=== PATIENT | female | born 1940 | race Caucasian/White ===

== ENCOUNTER 2023-02-11 21:13 | Inpatient (IN) | payer MEDICARE, OTHER ==
[~2023-02-11] VITALS: Ht 154.9 cm; Wt 61.9 kg
[2023-02-11] MEDS ORDERED: APIX2.5T PO (22:58)
[2023-02-11] MEDS ORDERED: SACU1TAB PO (22:58)
[2023-02-11] MEDS ORDERED: FURO-152 PO (22:59)
[2023-02-11] MEDS ORDERED: ONDA-104 PO (22:59)
[2023-02-11] MEDS ORDERED: CARV3 PO (23:03)
[2023-02-11] MEDS ORDERED: ACET-784 PO (23:03)
[2023-02-11 23:13] LABS: BASOPHILS % (AUTO) 0.4 % (0.0-2.0); EOSINOPHILS % (AUTO) 0.7 % (1.0-6.0); HEMATOCRIT 38.6 % (36-46); HEMOGLOBIN 11.6 g/dL (12.0-16.0); LYMPHOCYTES % (AUTO) 17.2 % (22.0-44.0); MEAN CORPUSCULAR HEMOGLOBIN 27.2 pg (26.0-34.0); MEAN CORPUSCULAR VOLUME 91 fL (80-100); MONOCYTES # (AUTO) 0.5 K/uL (0.1-1.0); MONOCYTES % (AUTO) 8.6 % (2.0-9.0); NEUTROPHILS # (AUTO) 4.1 K/uL (1.8-7.7); NEUTROPHILS % (AUTO) 73.1 % (40.0-70.0); PLATELET COUNT (AUTO) 177 K/uL (150-450); RED BLOOD CELL COUNT(AUTO) 4.26 MIL/uL (4.00-5.20); RED CELL DISTRIBUTION WIDTH 21.8 % (11.5-14.5)
[2023-02-11] MEDS ORDERED: BISA10SU61 PR (23:14)
[2023-02-11] MEDS ORDERED: DONE-51 PO (23:14)
[2023-02-11] MEDS ORDERED: PANT-31 PO (23:14)
[2023-02-11] MEDS ORDERED: ROSU10TA72 PO (23:14)
[2023-02-11] MEDS ORDERED: MULT-1192 PO (23:14)
[2023-02-11] MEDS ORDERED: NA P133E4 PR (23:14)
[2023-02-11] MEDS ORDERED: ALLO-97 PO (23:14)
[2023-02-11] MEDS ORDERED: [UNRECOGNIZED DRUG - CODE] PO (23:14)
[2023-02-11] MEDS ORDERED: MAGN-169 PO (23:14)
[2023-02-11] MEDS ORDERED: OXYC-26 PO (23:14)
[2023-02-11 23:20] LABS: CALCIUM, TOTAL 8.6 mg/dL (8.8-10.5); CREATININE 1.32 mg/dL (0.60-1.30); POTASSIUM 4.2 mmol/L (3.5-5.1)
[2023-02-11 23:23] LABS: INR 1.4 (0.9-1.1); PROTHROMBIN TIME 14.5 SEC (9.4-11.6)
[2023-02-11 23:26] LABS: ALBUMIN 3.3 g/dL (3.4-5.0); BILIRUBIN,TOTAL 2.1 mg/dL (0.1-1.0); TOTAL PROTEIN, SERUM 7.2 g/dL (6.4-8.2)
[2023-02-12] MEDS ORDERED: ACETAMINOPHEN 325 MG TABLET PO PRN (01:30)
[2023-02-12] MEDS ORDERED: 0.9% SODIUM CHLORIDE 10 ML SYRINGE IVP PRN (01:30)
[2023-02-12] MEDS ORDERED: ONDANSETRON HCL 4 MG/2 ML VIAL IVP PRN ×2 (01:30→07:30)
[2023-02-12] MEDS ORDERED: HEPARIN SODIUM,PORCINE 5,000 UNITS/ML VIAL SQ SCH (08:00)
[2023-02-12] MEDS: FUROSEMIDE 20 MG/2 ML VIAL IVP SCH ×2 (08:29→21:08)
[2023-02-12] MEDS: FAMOTIDINE 20 MG TABLET PO SCH (08:29)
[2023-02-12] MEDS: DOCUSATE SODIUM 100 MG CAPSULE PO SCH ×2 (08:29→21:00)
[2023-02-12] MEDS ORDERED: FUROSEMIDE 20 MG/2 ML VIAL IVP ONE (10:15)
[2023-02-12] MEDS ORDERED: HEPARIN SODIUM,PORCINE 5,000 UNITS/ML VIAL IVP PRN ×2 (10:15)
[2023-02-12 12:06] VITALS: BP 96/62
[2023-02-12 12:31] LABS: BASOPHILS % (AUTO) 0.5 % (0.0-2.0); EOSINOPHILS % (AUTO) 0.4 % (1.0-6.0); HEMATOCRIT 38.6 % (36-46); HEMOGLOBIN 11.9 g/dL (12.0-16.0); LYMPHOCYTES # (AUTO) 1.1 K/uL (1.0-4.8); LYMPHOCYTES % (AUTO) 17.2 % (22.0-44.0); MEAN CORPUSCULAR HGB CONC 30.9 G/dL (31.0-37.0); MEAN CORPUSCULAR VOLUME 91 fL (80-100); MONOCYTES # (AUTO) 0.4 K/uL (0.1-1.0); MONOCYTES % (AUTO) 6.9 % (2.0-9.0); NEUTROPHILS # (AUTO) 4.7 K/uL (1.8-7.7); PLATELET COUNT (AUTO) 170 K/uL (150-450); RED BLOOD CELL COUNT(AUTO) 4.26 MIL/uL (4.00-5.20); RED CELL DISTRIBUTION WIDTH 21.4 % (11.5-14.5)
[2023-02-12] MEDS: HEPARIN SODIUM 25000 UNITS/D5W 250 ML IV PRN (12:43)
[2023-02-12 12:46] LABS: INR 1.4 (0.9-1.1); PROTHROMBIN TIME 14.6 SEC (9.4-11.6)
[2023-02-12 13:21] LABS: ABG BASE EXCESS -0.1 mmol/L (-2.0-3.0); ABG CARBOXYHEMOGLOBIN 0.9 % (0.0-1.5); ABG HCO3 24.1 mmol/L (22.0-26.0); ABG METHEMOGLOBIN 0.2 % (0.0-1.5); ABG OXYGEN CONTENT 15.5 mL/dL (15.0-23.0); ABG OXYGEN SATURATION 88.2 % (95.0-98.0); ABG OXYHEMOGLOBIN 87.2 % (94.0-100.0); ABG PCO2 42 mmHg (35-45); ABG PH 7.389 (7.35-7.450); ABG TOTAL HEMOGLOBIN 12.6 G/dL (12.0-18.0); PO2, ARTERIAL BG 54.3 mmHg (71.0-79.0); SOURCE, BLOOD GAS ARTERIAL
[2023-02-12 13:23] LABS: ABG A-A DIFF O2 183.4 mmHg (10-20.0); SITE, BLOOD GAS LFT BRACHIAL
[2023-02-12 13:24] LABS: O2 DEVICE,BLOOD GAS CANNULA (ROOM AIR)
[2023-02-12 16:45] VITALS: BP 97/60
[2023-02-12] MEDS: ACETAMINOPHEN 325 MG TABLET PO PRN (17:23)
[2023-02-12 17:54] LABS: APPEARANCE,URINE HAZY (CLEAR); BILIRUBIN,URINE NEGATIVE (NEGATIVE); GLUCOSE, URINE (UA) NEGATIVE (NEGATIVE); KETONES,URINE NEGATIVE (NEGATIVE); LEUKOCYTE ESTERASE ,URINE LARGE (NEGATIVE); NITRATE,URINE NEGATIVE (NEGATIVE); OCCULT BLOOD,URINE NEGATIVE (NEGATIVE); PROTEIN,URINE 30-70 mg/dL (NEGATIVE); SPECIFIC GRAVITIY, URINE 1.012 (1.003-1.030); UROBILINOGEN,URINE <=1.0 mg/dL (<=1.0)
[2023-02-12 18:04] LABS: BACTERIA,URINE Few /HPF (None Seen); RBC,URINE None Seen /HPF (0-2); SQUAMOUS EPITHELIAL CELL,UR Few /LPF (None Seen)
[2023-02-12 20:30] VITALS: BP 108/64
[2023-02-12 23:48] VITALS: BP 97/64
[2023-02-13 07:15] LABS: BASOPHILS % (AUTO) 0.5 % (0.0-2.0); HEMATOCRIT 39.5 % (36-46); LYMPHOCYTES # (AUTO) 1.7 K/uL (1.0-4.8); LYMPHOCYTES % (AUTO) 23.3 % (22.0-44.0); MEAN CORPUSCULAR HEMOGLOBIN 27.5 pg (26.0-34.0); MEAN CORPUSCULAR HGB CONC 30.5 G/dL (31.0-37.0); MEAN CORPUSCULAR VOLUME 90 fL (80-100); MONOCYTES # (AUTO) 0.7 K/uL (0.1-1.0); MONOCYTES % (AUTO) 10.1 % (2.0-9.0); NEUTROPHILS # (AUTO) 4.6 K/uL (1.8-7.7); NEUTROPHILS % (AUTO) 65.1 % (40.0-70.0); PLATELET COUNT (AUTO) 152 K/uL (150-450); RED BLOOD CELL COUNT(AUTO) 4.37 MIL/uL (4.00-5.20); RED CELL DISTRIBUTION WIDTH 21.5 % (11.5-14.5)
[2023-02-13 07:19] VITALS: BP 95/54
[2023-02-13 07:44] LABS: CALCIUM, TOTAL 8.8 mg/dL (8.8-10.5); CREATININE 1.24 mg/dL (0.60-1.30); POTASSIUM 4.1 mmol/L (3.5-5.1)
[2023-02-13] MEDS: FUROSEMIDE 20 MG/2 ML VIAL IVP SCH (09:00)
[2023-02-13] MEDS: ACETAMINOPHEN 325 MG TABLET PO PRN (09:56)
[2023-02-13] MEDS: DOCUSATE SODIUM 100 MG CAPSULE PO SCH ×2 (09:57→20:02)
[2023-02-13] MEDS: FAMOTIDINE 20 MG TABLET PO SCH (09:57)
[2023-02-13 11:00] VITALS: BP 102/67
[2023-02-13] MEDS: HEPARIN SODIUM 25000 UNITS/D5W 250 ML IV PRN (12:58)
[2023-02-13 15:21] VITALS: BP 102/70
[2023-02-13 19:26] VITALS: BP 116/70
[2023-02-13] MEDS: FUROSEMIDE 20 MG TABLET PO SCH (20:02)
[2023-02-13] MEDS: CARVEDILOL 3.125 MG TABLET PO SCH (20:02)
[2023-02-13] MEDS: SACUBITRIL/VALSARTAN 24-26 MG TABLET PO SCH (20:02)
[2023-02-13 23:15] VITALS: BP 103/60
[2023-02-14] MEDS: ACETAMINOPHEN 325 MG TABLET PO PRN ×2 (02:52→11:23)
[2023-02-14 03:16] VITALS: BP 102/56
[2023-02-14 07:30] VITALS: BP 100/64
[2023-02-14] MEDS: DOCUSATE SODIUM 100 MG CAPSULE PO SCH ×2 (08:54→20:24)
[2023-02-14] MEDS: ROSUVASTATIN CALCIUM 10 MG TABLET PO SCH (08:54)
[2023-02-14] MEDS: CARVEDILOL 3.125 MG TABLET PO SCH ×2 (08:54→20:24)
[2023-02-14] MEDS: FAMOTIDINE 20 MG TABLET PO SCH (08:54)
[2023-02-14] MEDS: FUROSEMIDE 20 MG TABLET PO SCH ×2 (08:54→20:24)
[2023-02-14] MEDS: SACUBITRIL/VALSARTAN 24-26 MG TABLET PO SCH ×2 (08:54→20:24)
[2023-02-14] MEDS ORDERED: SODIUM CHLORIDE 0.9% 500 ML IV ONE (11:21)
[2023-02-14] MEDS: CefTRIAXone 1 GM/DEXTROSE 50 ML IV SCH (11:24)
[2023-02-14 11:37] VITALS: BP 98/54
[2023-02-14 15:37] VITALS: BP 107/73
[2023-02-14 20:05] VITALS: BP 105/70
[2023-02-14] MEDS: APIXABAN 5 MG TABLET PO SCH (20:24)
[2023-02-15 01:05] VITALS: BP 109/65
[2023-02-15 05:17] VITALS: BP 110/67
[2023-02-15 07:27] VITALS: BP 110/66
[2023-02-15] MEDS: SACUBITRIL/VALSARTAN 24-26 MG TABLET PO SCH ×2 (08:18→21:14)
[2023-02-15] MEDS: DOCUSATE SODIUM 100 MG CAPSULE PO SCH ×2 (08:18→21:11)
[2023-02-15] MEDS: FAMOTIDINE 20 MG TABLET PO SCH (08:18)
[2023-02-15] MEDS: CefTRIAXone 1 GM/DEXTROSE 50 ML IV SCH (08:18)
[2023-02-15] MEDS: APIXABAN 5 MG TABLET PO SCH ×2 (08:19→21:11)
[2023-02-15] MEDS: FUROSEMIDE 20 MG TABLET PO SCH ×2 (08:19→21:14)
[2023-02-15] MEDS: ROSUVASTATIN CALCIUM 10 MG TABLET PO SCH (08:19)
[2023-02-15] MEDS: CARVEDILOL 3.125 MG TABLET PO SCH ×2 (08:19→21:11)
[2023-02-15] MEDS: ACETAMINOPHEN 325 MG TABLET PO PRN ×3 (08:41→21:11)
[2023-02-15] MEDS ORDERED: ENOXAPARIN SODIUM 40 MG/0.4 ML PF SYRINGE SQ SCH (09:00)
[2023-02-15 11:16] VITALS: BP 103/63
[2023-02-15] MEDS: LIDOCAINE 5% TRANSDERMAL PATCH TD SCH (15:11)
[2023-02-15 15:37] VITALS: BP 98/60
[2023-02-15 20:50] VITALS: BP 108/68
[2023-02-15] MEDS: ETHYL ALCOHOL 62% ANTISEPTIC NASAL SANITIZER 0.6 ML AMPUL NASAL SCH (21:10)
[2023-02-15] MEDS: -LIDODERM PATCH NOTE- MISC SCH (21:14)
[2023-02-15] MEDS ORDERED: MORPHINE SULFATE 2 MG/ML SYRINGE IVP ONE (23:15)
[2023-02-16 01:38] VITALS: BP 104/60
[2023-02-16 07:15] VITALS: BP 120/59
[2023-02-16 07:35] VITALS: BP 125/76
[2023-02-16 07:56] LABS: B-TYPE NATRIURETIC PEPTIDE 1420 pg/mL (0-100)
[2023-02-16] MEDS: ROSUVASTATIN CALCIUM 10 MG TABLET PO SCH (08:24)
[2023-02-16] MEDS: SACUBITRIL/VALSARTAN 24-26 MG TABLET PO SCH ×2 (08:24→20:40)
[2023-02-16] MEDS: CARVEDILOL 3.125 MG TABLET PO SCH (08:24)
[2023-02-16] MEDS: LIDOCAINE 5% TRANSDERMAL PATCH TD SCH (08:24)
[2023-02-16] MEDS: APIXABAN 5 MG TABLET PO SCH ×2 (08:24→20:40)
[2023-02-16] MEDS: ETHYL ALCOHOL 62% ANTISEPTIC NASAL SANITIZER 0.6 ML AMPUL NASAL SCH ×2 (08:24→20:41)
[2023-02-16] MEDS: FAMOTIDINE 20 MG TABLET PO SCH (08:24)
[2023-02-16] MEDS: DOCUSATE SODIUM 100 MG CAPSULE PO SCH ×2 (08:24→20:40)
[2023-02-16] MEDS: FUROSEMIDE 20 MG TABLET PO SCH ×2 (08:24→20:40)
[2023-02-16 08:27] LABS: ANION GAP 5 mmol/L (8-16); CALCIUM, TOTAL 8.6 mg/dL (8.8-10.5); CARBON DIOXIDE 32 mmol/L (22-29); CHLORIDE 101 mmol/L (98-107); GLOMERULAR FILTR. RATE CALC > 60 mL/min (>60); GLUCOSE,RANDOM 118 mg/dL (70-110); POTASSIUM 4.3 mmol/L (3.5-5.1); SODIUM SERUM 138 mmol/L (136-145); UREA NITROGEN, BLOOD 35 mg/dL (7-18)
[2023-02-16] MEDS: CefTRIAXone 1 GM/DEXTROSE 50 ML IV SCH (10:58)
[2023-02-16 11:27] VITALS: BP 99/64
[2023-02-16 16:00] VITALS: BP 104/65
[2023-02-16 20:03] VITALS: BP 121/74
[2023-02-16] MEDS: -LIDODERM PATCH NOTE- MISC SCH (20:40)
[2023-02-16] MEDS: CARVEDILOL 6.25 MG TABLET PO SCH (20:40)
[2023-02-17] VITALS (7 sets, daily range): BP systolic 95–131; BP diastolic 55–77
[2023-02-17] MEDS: CefTRIAXone 1 GM/DEXTROSE 50 ML IV SCH (08:43)
[2023-02-17] MEDS: CARVEDILOL 6.25 MG TABLET PO SCH ×2 (08:43→20:22)
[2023-02-17] MEDS: SPIRONOLACTONE 25 MG TABLET PO SCH (08:44)
[2023-02-17] MEDS: SACUBITRIL/VALSARTAN 24-26 MG TABLET PO SCH ×2 (08:44→20:56)
[2023-02-17] MEDS: FUROSEMIDE 20 MG TABLET PO SCH ×2 (08:45→20:22)
[2023-02-17] MEDS: FAMOTIDINE 20 MG TABLET PO SCH (08:45)
[2023-02-17] MEDS: APIXABAN 5 MG TABLET PO SCH ×2 (08:45→20:22)
[2023-02-17] MEDS: DOCUSATE SODIUM 100 MG CAPSULE PO SCH ×2 (08:45→20:23)
[2023-02-17] MEDS: ROSUVASTATIN CALCIUM 10 MG TABLET PO SCH (08:46)
[2023-02-17] MEDS: LIDOCAINE 5% TRANSDERMAL PATCH TD SCH (08:47)
[2023-02-17] MEDS: ETHYL ALCOHOL 62% ANTISEPTIC NASAL SANITIZER 0.6 ML AMPUL NASAL SCH ×2 (08:47→20:22)
[2023-02-17] MEDS: -LIDODERM PATCH NOTE- MISC SCH (20:23)
[2023-02-17] MEDS: ACETAMINOPHEN 325 MG TABLET PO PRN (23:46)
[2023-02-18 05:52] VITALS: BP 110/64
[2023-02-18 07:42] VITALS: BP 100/62
[2023-02-18] MEDS: DOCUSATE SODIUM 100 MG CAPSULE PO SCH (08:16)
[2023-02-18] MEDS: SPIRONOLACTONE 25 MG TABLET PO SCH (08:16)
[2023-02-18] MEDS: APIXABAN 5 MG TABLET PO SCH (08:16)
[2023-02-18] MEDS: CARVEDILOL 6.25 MG TABLET PO SCH (08:16)
[2023-02-18] MEDS: SACUBITRIL/VALSARTAN 24-26 MG TABLET PO SCH (08:16)
[2023-02-18] MEDS: ETHYL ALCOHOL 62% ANTISEPTIC NASAL SANITIZER 0.6 ML AMPUL NASAL SCH (08:16)
[2023-02-18] MEDS: FAMOTIDINE 20 MG TABLET PO SCH (08:16)
[2023-02-18] MEDS: ROSUVASTATIN CALCIUM 10 MG TABLET PO SCH (08:16)
[2023-02-18] MEDS: FUROSEMIDE 20 MG TABLET PO SCH (08:16)
[2023-02-18] MEDS: LIDOCAINE 5% TRANSDERMAL PATCH TD SCH (08:19)
[2023-02-18 11:06] VITALS: BP 100/67
[2023-02-18] MEDS: CefTRIAXone 1 GM/DEXTROSE 50 ML IV SCH (11:17)
[2023-02-18 11:38] LABS: COVID AG,FIA SOURCE NASAL SWAB
[2023-02-18] MEDS: ACETAMINOPHEN 325 MG TABLET PO PRN (14:44)
[2023-02-18 15:40] VITALS: BP 98/60
[2023-02-18] MEDS ORDERED: HydrOXYzine HCL 10 MG TABLET PO ONE (16:45)
== END 2023-02-18 19:20 | DRG 280 ==
LOC: EMS 21:13 → 5S 02-12 06:00
PROVIDERS: ADMIT Internal Medicine; ATTEND Internal Medicine
PROC: 0PSCXZZ Reposition Right Humeral Head, External Approach (ICD-10-PCS; principal; 2023-02-12)
DX: I50.23 Acute on chronic systolic (congestive) heart failure (principal); J96.21 Acute and chronic respiratory failure with hypoxia; I21.A1 Myocardial infarction type 2; I42.9 Cardiomyopathy, unspecified; N17.9 Acute kidney failure, unspecified; I47.20 Ventricular tachycardia, unspecified; J98.11 Atelectasis; S42.211P Unspecified displaced fracture of surgical neck of right humerus, subsequent encounter for fracture with malunion; F41.9 Anxiety disorder, unspecified; J32.9 Chronic sinusitis, unspecified; I07.1 Rheumatic tricuspid insufficiency; N18.30 Chronic kidney disease, stage 3 unspecified; I50.82 Biventricular heart failure; Z20.822 Contact with and (suspected) exposure to COVID-19; K21.9 Gastro-esophageal reflux disease without esophagitis; M54.50 Low back pain, unspecified; M25.571 Pain in right ankle and joints of right foot; S30.0XXA Contusion of lower back and pelvis, initial encounter; W18.39XA Other fall on same level, initial encounter; I95.9 Hypotension, unspecified; F03.90 Unspecified dementia, unspecified severity, without behavioral disturbance, psychotic disturbance, mood disturbance, and anxiety; R62.7 Adult failure to thrive; Z68.25 Body mass index [BMI] 25.0-25.9, adult; Z74.01 Bed confinement status; Z79.01 Long term (current) use of anticoagulants; Z86.711 Personal history of pulmonary embolism; Y93.89 Activity, other specified; Y92.128 Other place in nursing home as the place of occurrence of the external cause; Y99.8 Other external cause status
CPT/HCPCS: 36600; 70450; 71045; 72125; 80048; 80053; 81001; 82550; 82805; 83735; 83880; 84484; 85025; 85610; 85730; 87081; 87086; 87186; 92523; 92610; 93005; 93306; 93970; 97163; 97167; 97535; 99285; J0696; J1644; J1940; J2270; J7040; Q9967; 36415-L1; 36415-TC